=== PATIENT | female | born 1975 | race Caucasian/White ===

== ENCOUNTER 2017-07-28 00:05 | Emergency (ER) | payer OTHER ==
[~2017-07-28] VITALS: Ht 167.6 cm; Wt 119.8 kg
[~2017-07-28 00:05] MED LIST: ADIPEX-P37.5 M1 PO; ADVAIR HFA120 INHAL1 IH; ALBUTEROL17 GM IH; ASPIR 8181 M1 PO; ASPIR-TRIN325 M1 PO; ASPIRIN325 MG PO; ATROVENT 00.5 MG/2.5 IH; Advair HFA 230/21 IH; BENTYL10 MG PO; CENTURY CARDIO1 EAC1 PO; Ceftin PO; DuoNeb IH; FLEXERIL10 MG PO; FLOVENT DISKUS1 DIS1 IH; GABAPENTIN300 MG PO; IMITREX50 MG PO; KLONOPIN0.5 M1 PO; LIDODERM 5% P1 PATCH TD; METAXALONE800 MG PO; MUCINEX600 MG PO; Motrin PO; NAPROSYN500 MG PO; NORCO 5/3251 TABLET PO; PERCOCET 5/31 TABLET PO; PREDNISONE PO; PREDNISONE20 MG PO; PRIMATENE MIST15 M1 IH; Proventil,Ventolin H IH; Relafen PO; SINGULAIR10 MG PO; Singulair PO; TAMIFLU75 MG PO; TOPAMAX50 MG PO; TOPICORT TP; TORADOL10 MG PO; TRAMADOL HCL50 MG PO; Theragran PO; VALIUM5 MG PO; VENTOLIN HFA18 GM IH; ZITHROMAX Z-PA250 MG PO; ZITHROMAX250 MG PO; ZOFRAN ODT4 MG PO; ZOLOFT100 M1 PO; ZOLOFT100 MG PO; [UNRECOGNIZED DRUG - CODE] PO
[2017-07-28 00:56] LABS: ALBUMIN 4.3 g/dL (3.2-4.8); CHLORIDE 104 mEq/L (99-109); POTASSIUM 4.5 mEq/L (3.7-5.4); SODIUM 140 mEq/L (136-147)
[2017-07-28 00:59] LABS: GLUCOSE 93 mg/dL (70-99); TOTAL PROTEIN 7.1 g/dL (6.4-8.3)
[2017-07-28 01:00] LABS: TOTAL BILIRUBIN 0.6 mg/dL (0.0-1.0)
[2017-07-28 01:02] LABS: ALKALINE PHOSPHATASE 89 IU/L (3-129); CREATININE 1.1 mg/dL (0.6-1.3); GFR ESTIMATE (CALCULATED) 58 mL/min/
[2017-07-28 01:03] LABS: UREA NITROGEN (BUN) 13 mg/dL (9-23)
[2017-07-28 01:04] LABS: AST (GOT) 15 IU/L (2-34)
[2017-07-28 01:05] LABS: ALT (GPT) 17 IU/L (3-49)
[2017-07-28 01:10] LABS: HEMATOCRIT 42.6 % (36.0-46.0); HEMOGLOBIN 14.9 G/DL (11.9-15.5); MCH 32.7 PG (29.0-34.0); MCV 93.4 FL (83-99); PLATELET COUNT 183 K/uL (156-360); RBC DIS.WIDTH-CV 13.2 % (11.8-14.6); RBC DIS.WIDTH-SD 44.8 % (39-53); RED BLOOD COUNT 4.56 M/uL (3.80-5.20); WHITE BLOOD COUNT 9.6 K/uL (4.1-10.2)
[2017-07-28 02:39] LABS: APPEARANCE SL.HAZY ((CLEAR)); BILIRUBIN NEGATIVE; BLOOD NEGATIVE; COLOR YELLOW ((YELLOW)); GLUCOSE (STRIP) NEGATIVE; KETONES NEGATIVE; LEUKOCYTES NEGATIVE; NITRITE NEGATIVE; PROTEIN (STRIP) NEGATIVE; SPECIFIC GRAVITY 1.013 (1.000-1.030); UROBILINOGEN 0.2 MG/DL (0.2-1.0)
[2017-07-28 02:45] LABS: CHLORIDE 105 mEq/L (99-109); SODIUM 137 mEq/L (136-147)
[2017-07-28 02:47] LABS: GLUCOSE 112 mg/dL (70-99)
[2017-07-28 02:48] LABS: TOTAL PROTEIN 6.4 g/dL (6.4-8.3)
[2017-07-28 02:49] LABS: TOTAL BILIRUBIN 0.6 mg/dL (0.0-1.0)
[2017-07-28 02:51] LABS: ALKALINE PHOSPHATASE 83 IU/L (3-129); GFR ESTIMATE (CALCULATED) > 59 mL/min/
[2017-07-28 02:52] LABS: BACTERIA NONE SEEN /HPF; EPITHELIAL CELLS 2+ /HPF; MUCUS NONE SEEN /LPF; RED BLOOD CELLS 0-5 /HPF (0-5); UCUL ADDED? NO; WHITE BLOOD CELLS 0-5 /HPF (0-5)
[2017-07-28 02:52] LABS: UREA NITROGEN (BUN) 12 mg/dL (9-23)
[2017-07-28 02:53] LABS: AST (GOT) 14 IU/L (2-34)
[2017-07-28 02:54] LABS: ALT (GPT) 15 IU/L (3-49); LIPASE 69 U/L (1.0-51.0)
[2017-07-28 03:11] LABS: POTASSIUM 3.5 mEq/L (3.7-5.4)
[2017-07-28] MEDS ORDERED: BENTYL10 MG PO (03:53)
[2017-07-28] MEDS ORDERED: ZOFRAN4 MG PO (03:53)
[2017-07-28 04:57] VITALS: BP 115/82
== END 2017-07-28 04:57 | disposition home or self-care (01) ==
LOC: EME 00:05
PROVIDERS: Emergency Medicine
DX: K52.9 Noninfective gastroenteritis and colitis, unspecified (principal); J45.909 Unspecified asthma, uncomplicated; F41.9 Anxiety disorder, unspecified; F32.9 Major depressive disorder, single episode, unspecified; G43.909 Migraine, unspecified, not intractable, without status migrainosus; Z87.891 Personal history of nicotine dependence; Z95.0 Presence of cardiac pacemaker; Z90.710 Acquired absence of both cervix and uterus; Z90.49 Acquired absence of other specified parts of digestive tract; Z79.82 Long term (current) use of aspirin; Z88.1 Allergy status to other antibiotic agents; Z88.8 Allergy status to other drugs, medicaments and biological substances
CPT/HCPCS: 74177; 80053; 81003; 83690; 85027; 99281; 99285; J2405; J3010; J7030